=== PATIENT | female | born 1965 | race Caucasian/White ===

== ENCOUNTER → 2022-08-28 | Outpatient (CLI) | payer OTHER ==
--- NOTE | 2022-08-30 12:21 | MR ---
EXAMINATION TYPE: MR brain wo con DATE OF EXAM: 08/28/2022 5:36 PM COMPARISON: 06/07/2013. CLINICAL INDICATION:Female, 57 years old with history of R51.9 HEADACHE; Headache TECHNIQUE: Multi planar, multi sequence imaging was performed through the brain including: T1, T2, In version recovery, Diffusion weighted imaging, and gradient echo imaging. No gadolinium was given. FINDINGS: Motion limited exam. The gilbert-white junctions, ventricular system, and cisterns appear unremarkable. Scattered foci and c onfluent areas of of high T2 signal intensity are seen within the periventricular white matter. Midli ne structures show no abnormality. Diffusion-weighted imaging shows no evidence of restricted diffusi on. The susceptibility weighted images do not reveal any evidence for micro-hemorrhage. The bone marrow signal is within normal limits. Paranasal sinuses and mastoid air cells: No significant paranasal sinus disease. Visualized orbits: Orbital contents are intact. IMPRESSION: 1. No evidence of intracranial mass or acute/subacute infarct. 2. Moderate nonspecific white matter changes, likely secondary to small vessel ischemic disease. Thes e have progressed from 2013.
== END | disposition home or self-care (01) ==
LOC: RADMRIMAIN 16:44
PROVIDERS: ATTEND Family Medicine
DX: R90.82 White matter disease, unspecified (principal); R51.9 Headache, unspecified
CPT/HCPCS: 70551